=== PATIENT | female | born 1990 | race Caucasian/White ===

== ENCOUNTER 2023-01-14 03:11 | Emergency (ER) | payer MEDICAID, OTHER ==
[~2023-01-14] VITALS: Ht 167.6 cm; Wt 65.0 kg
[~2023-01-14 03:11] MED LIST: ALBU6.7H15 INH; CLAR10 PO; MONT-46 PO; P20 MT
[2023-01-14] MEDS ORDERED: IPRATROPIUM BROMIDE (0.02%) 0.5MG/2.5ML NEB HHN STA (03:31)
[2023-01-14] MEDS ORDERED: METHYLPREDNISOLONE SOD SUCC 125 MG/2 ML VIAL IV STA (03:31)
[2023-01-14] MEDS ORDERED: ALBUTEROL (0.083%) 2.5MG/3ML NEB HHN STA (03:31)
[2023-01-14] MEDS ORDERED: MAGNESIUM 2 G PREMIX 50 ML IV STA (03:31)
[2023-01-14] MEDS ORDERED: ALBU6.7H3 INH (05:08)
[2023-01-14] MEDS ORDERED: P20 MT (05:08)
[2023-01-14 07:13] VITALS: BP 121/72
== END 2023-01-14 06:15 | disposition home or self-care (01) ==
LOC: ER 03:11
DX: J45.901 Unspecified asthma with (acute) exacerbation (principal); F12.10 Cannabis abuse, uncomplicated
CPT/HCPCS: 94644; 96365; 96366; 96375; 99285; J2930; J3475; Z7610

== ENCOUNTER 2023-01-18 16:51 | Emergency (ER) | payer OTHER ==
[~2023-01-18] VITALS: Ht 157.5 cm; Wt 75.0 kg
[~2023-01-18 16:51] MED LIST changes: +ALBU6.7H3 INH
[2023-01-18 16:54] VITALS: BP 123/84
[2023-01-18] MEDS ORDERED: PREDNISONE 20MG TABLET PO STA (16:58)
[2023-01-18] MEDS ORDERED: ALBUTEROL (0.083%) 2.5MG/3ML NEB HHN STA (18:46)
[2023-01-18] MEDS ORDERED: P50 MT (18:50)
[2023-01-18] MEDS ORDERED: ALBU6.7H3 INH (18:51)
== END 2023-01-18 19:07 | disposition home or self-care (01) ==
LOC: ER 16:51
DX: J45.901 Unspecified asthma with (acute) exacerbation (principal); F12.10 Cannabis abuse, uncomplicated
CPT/HCPCS: 71045; 93005; 94640; 99283; J7512; Z7610

== ENCOUNTER 2023-03-29 20:58 | Emergency (ER) | payer OTHER ==
[~2023-03-29] VITALS: Ht 149.9 cm; Wt 62.1 kg
[~2023-03-29 20:58] MED LIST changes: +P50 MT
[2023-03-29] MEDS ORDERED: METHYLPREDNISOLONE SOD SUCC 125 MG/2 ML VIAL IV STA (21:21)
[2023-03-29] MEDS ORDERED: SODIUM CHLORIDE 0.9% 1,000 ML IV ONE (21:30)
[2023-03-29 22:53] LABS: BASOPHILS % 0.2 % (0.0-2.0); EOSINOPHILS % 5.5 % (0.0-5.0); HEMATOCRIT. 42.7 % (36.0-48.0); HEMOGLOBIN. 14.4 g/dL (12.0-16.0); LYMPHOCYTES % 12.6 % (20.0-50.0); MEAN CORPUSCULAR HEMOGLOBIN 32.9 pg (28.0-32.0); MEAN CORPUSCULAR VOLUME 97.2 fL (81.0-99.0); MEAN PLATELET VOLUME 8.2 fl (7.4-10.4); MONOCYTES % 4.6 % (2.0-8.0); NEUTROPHILS % 77.1 % (40.0-76.0); PLATELET 295 x1000/uL (130-400); RED CELL DISTRIBUTION WIDTH 13.4 % (11.6-14.6)
[2023-03-29 23:01] LABS: CHLORIDE 109 mEq/L (98-107)
[2023-03-29] MEDS ORDERED: ALBU6.7H3 INH (23:29)
[2023-03-29] MEDS ORDERED: ALBU05 NEB (23:29)
[2023-03-29] MEDS ORDERED: P50 MT (23:29)
[2023-03-30 00:45] LABS: BG BASE EXCESS -4.6 mmol/L (-2.0-2.0); BG CARBOXYHEMOGLOBIN 0.5 % (0.5-1.5); BG DEOXYHEMOGLOBIN 10.4 % (0.0-5.0); BG FRACTION INSPIRED OXYGEN 21; BG HCO3 ACT 20.4 mmol/L (22.0-26.0); BG METHEMOGLOBIN 0.2 % (0.0-1.5); BG OXYGEN SATURATION 89.5 % (92.0-98.5); BG OXYHEMOGLOBIN 88.9 % (94.0-97.0); BG PCO2 37.8 mmHg (35.0-45.0); BG PO2 59.9 mmHg (75.0-100.0); BG SAMPLE SITE LEFT BRACHIAL; BG TOTAL HEMOGLOBIN 15.1 g/dL (12.0-18.0); BG VENT MODE ROOM AIR
[2023-03-30 04:15] VITALS: BP 113/73
== END 2023-03-30 04:50 | disposition left against medical advice (07) ==
LOC: ER 20:58
DX: J45.901 Unspecified asthma with (acute) exacerbation (principal); F12.10 Cannabis abuse, uncomplicated; Z79.899 Other long term (current) drug therapy
CPT/HCPCS: 36415; 36600; 71045; 80053; 82375; 82805; 85025; 93005; 96360; 96361; 99285; J2930; J7030

== ENCOUNTER 2023-04-24 23:24 | Emergency (ER) | payer OTHER ==
[~2023-04-24] VITALS: Ht 162.6 cm; Wt 73.0 kg
[~2023-04-24 23:24] MED LIST changes: +ALBU05 NEB
[2023-04-24] MEDS ORDERED: METHYLPREDNISOLONE SOD SUCC 125MG/2ML (ACT-O-VIAL) IV STA (23:52)
[2023-04-24] MEDS ORDERED: IPRATROPIUM BROMIDE (0.02%) 0.5MG/2.5ML NEB HHN STA (23:52)
[2023-04-25] MEDS ORDERED: SODIUM CHLORIDE 0.9% 1,000 ML IV ONE
[2023-04-25] MEDS ORDERED: MAGNESIUM 2 G PREMIX 50 ML IV ONE
[2023-04-25 00:36] LABS: BASOPHILS % 0.5 % (0.0-2.0); EOSINOPHILS % 6.6 % (0.0-5.0); HEMATOCRIT. 41.2 % (36.0-48.0); HEMOGLOBIN. 13.8 g/dL (12.0-16.0); MEAN CORPUSCULAR HEMOGLOBIN 32.6 pg (28.0-32.0); MEAN CORPUSCULAR VOLUME 97.1 fL (81.0-99.0); MEAN PLATELET VOLUME 7.6 fl (7.4-10.4); MONOCYTES % 7.7 % (2.0-8.0); NEUTROPHILS % 67.2 % (40.0-76.0); PLATELET 306 x1000/uL (130-400); RED BLOOD CELL COUNT 4.24 mill/uL (4.2-5.4); RED CELL DISTRIBUTION WIDTH 13.8 % (11.6-14.6)
[2023-04-25 00:40] LABS: CHLORIDE 112 mEq/L (98-107)
[2023-04-25 01:08] LABS: HCG SCREEN NEGATIVE
[2023-04-25 01:28] VITALS: PULSE 132; RESP 25; O2SAT 96
[2023-04-25] MEDS: ALBUTEROL (0.083%) 2.5MG/3ML NEB HHN SCH ×3 (01:36→01:38)
[2023-04-25] MEDS ORDERED: IPRATROPIUM BROMIDE (0.02%) 0.5MG/2.5ML NEB HHN NR (01:45)
[2023-04-25] MEDS ORDERED: ACETAMINOPHEN 325MG TABLET PO NR (01:45)
[2023-04-25 01:50] VITALS: PULSE 112; RESP 20; O2SAT 99
[2023-04-25 02:15] VITALS: PULSE 108; RESP 20; O2SAT 99
[2023-04-25] MEDS ORDERED: ALBUTEROL (0.083%) 2.5MG/3ML NEB HHN STA (04:13)
[2023-04-25] MEDS ORDERED: IPRATROPIUM BROMIDE (0.02%) 0.5MG/2.5ML NEB HHN STA (04:13)
[2023-04-25 04:51] VITALS: PULSE 107; RESP 20; O2SAT 99
[2023-04-25 05:48] VITALS: BP 113/60; PULSE 98; RESP 14
[2023-04-25] MEDS ORDERED: ALBU6.7H3 INH (05:58)
[2023-04-25] MEDS ORDERED: P20 MT (05:58)
== END 2023-04-25 06:19 | disposition home or self-care (01) ==
LOC: ER 23:24
DX: J45.909 Unspecified asthma, uncomplicated (principal); F12.10 Cannabis abuse, uncomplicated; Z79.899 Other long term (current) drug therapy; Z20.822 Contact with and (suspected) exposure to COVID-19
CPT/HCPCS: 36415; 71045; 94640; 99291; 80053; 84703; 85025; 96365; 96366; 96375; 87426; Z7610 ×3; J3475; J2930; J7030; C9803

== ENCOUNTER 2023-07-09 11:49 | Emergency (ER) | payer OTHER ==
[~2023-07-09] VITALS: Ht 157.5 cm; Wt 64.0 kg
[2023-07-09 11:53] VITALS: O2SAT 98
[2023-07-09] MEDS ORDERED: PREDNISONE 20MG TABLET PO ONE (12:15)
[2023-07-09] MEDS ORDERED: ALBU90AE INH (14:09)
[2023-07-09 14:11] VITALS: BP 128/72; PULSE 100; RESP 18; TEMP 98.7
== END 2023-07-09 14:13 | disposition home or self-care (01) ==
LOC: ER 12:06
DX: J45.901 Unspecified asthma with (acute) exacerbation (principal); Z91.013 Allergy to seafood; Z79.899 Other long term (current) drug therapy
CPT/HCPCS: 99283; J7512

== ENCOUNTER 2023-10-14 19:50 | Emergency (ER) | payer OTHER ==
[~2023-10-14] VITALS: Ht 167.6 cm; Wt 59.0 kg
[~2023-10-14 19:50] MED LIST changes: +ALBU90AE INH
[2023-10-14 20:07] VITALS: BP 143/96; TEMP 97.3
[2023-10-14] MEDS ORDERED: ALBUTEROL (0.083%) 2.5MG/3ML NEB HHN STA (20:14)
[2023-10-14] MEDS ORDERED: METHYLPREDNISOLONE SOD SUCC 125MG/2ML (ACT-O-VIAL) IV STA (20:14)
[2023-10-14] MEDS ORDERED: MAGNESIUM 2 G PREMIX 50 ML IV STA (20:14)
[2023-10-14] MEDS ORDERED: IPRATROPIUM BROMIDE (0.02%) 0.5MG/2.5ML NEB HHN STA (20:14)
[2023-10-14] MEDS ORDERED: ONDANSETRON HCL 4MG/2ML INJ IV ONE (20:15)
[2023-10-14 20:53] VITALS: PULSE 103; RESP 24; O2SAT 96
[2023-10-14] MEDS ORDERED: ACETAMINOPHEN 325MG TABLET PO ONE (21:30)
[2023-10-14] MEDS ORDERED: SODIUM CHLORIDE 0.9% 1,000 ML IV ONE (22:45)
[2023-10-14 22:50] LABS: HEMOGLOBIN. 14.6 g/dL (12.0-16.0); MEAN CORPUSCULAR HEMOGLOBIN 32.2 pg (28.0-32.0); MEAN CORPUSCULAR HGB CONC 32.3 g/dL (31.0-37.0); MEAN CORPUSCULAR VOLUME 99.7 fL (81.0-99.0); PLATELET 294 x1000/uL (130-400); RED BLOOD CELL COUNT 4.52 mill/uL (4.2-5.4); RED CELL DISTRIBUTION WIDTH 12.9 % (11.6-14.6)
[2023-10-14 22:56] LABS: DIFFERENTIAL COMMENT 1
[2023-10-14 23:03] LABS: ALANINE AMINOTRANSFERASE 20 IU/L (10-49); ALBUMIN 4.8 g/dL (3.2-4.8); ASPARTATE AMINOTRANSFERASE 24 IU/L (<34); BILIRUBIN TOTAL 0.7 mg/dL (0.1-1.0); CALCIUM 9.4 mg/dL (8.7-10.4); CARBON DIOXIDE 28 mEq/L (21-32); CHLORIDE 109 mEq/L (98-107); CREATININE 0.6 mg/dL (0.6-1.0); GLUCOSE 128 mg/dL (70-105); POTASSIUM 3.5 mEq/L (3.5-5.1); PROTEIN TOTAL 8.1 g/dL (6.0-8.3); SODIUM 145 mEq/L (136-145); UREA NITROGEN BLOOD 7 mg/dL (9-23)
[2023-10-14 23:11] LABS: HCG SCREEN NEGATIVE
[2023-10-14 23:30] LABS: ANISOCYTOSIS 1+; PLATELET ESTIMATE NORMAL
[2023-10-15] MEDS ORDERED: P50 MT (05:53)
[2023-10-22] MEDS ORDERED: MED4 MT (12:38)
[2023-10-22] MEDS ORDERED: ALBU6.7H15 INH (12:38)
[2023-10-22] MEDS ORDERED: ALBU2.5V13 NEB (12:38)
== END 2023-10-15 07:31 | disposition home or self-care (01) ==
LOC: ER 19:50
DX: J45.901 Unspecified asthma with (acute) exacerbation (principal); Z91.013 Allergy to seafood; Z79.899 Other long term (current) drug therapy
CPT/HCPCS: 80053; 84703; 85025; 36415; 71045; 94644; 96361; 96374; 96375; 99285; J3475; J2930; J2405; Z7610 ×4; J7030

== ENCOUNTER 2024-12-19 20:20 | Emergency (ER) | payer MEDICAID, OTHER ==
[~2024-12-19] VITALS: Ht 167.6 cm; Wt 65.0 kg
[~2024-12-19 20:20] MED LIST changes: -ALBU05 NEB; +ALBU2.5V13 NEB; -ALBU6.7H3 INH; -ALBU90AE INH; +METH4TAB95 MT; -P20 MT; -P50 MT
[2024-12-19 20:30] VITALS: RESP 22; O2SAT 93
[2024-12-19 20:43] LABS: BASOPHILS % 0.3 % (0.0-2.0); DIFFERENTIAL COMMENT 0; EOSINOPHILS % 0.6 % (0.0-5.0); HEMATOCRIT. 47.1 % (36.0-48.0); HEMOGLOBIN. 15.5 g/dL (12.0-16.0); LYMPHOCYTES % 14.1 % (20.0-50.0); MEAN CORPUSCULAR HEMOGLOBIN 33.9 pg (28.0-32.0); MEAN CORPUSCULAR HGB CONC 32.9 g/dL (31.0-37.0); MEAN PLATELET VOLUME 7.9 fl (7.4-10.4); MONOCYTES % 5.5 % (2.0-8.0); NEUTROPHILS % 79.5 % (40.0-76.0); PLATELET 384 x1000/uL (130-400); RED BLOOD CELL COUNT 4.57 mill/uL (4.2-5.4); RED CELL DISTRIBUTION WIDTH 13.6 % (11.6-14.6); WHITE BLOOD COUNT 15.1 x1000/uL (4.5-11.0)
[2024-12-19] MEDS: METHYLPREDNISOLONE SOD SUCC 125MG/2ML (ACT-O-VIAL) IV STA (20:44)
[2024-12-19] MEDS: MAGNESIUM 2 G PREMIX 50 ML IV ONE (20:44)
[2024-12-19 20:49] LABS: CHLORIDE 103 mEq/L (98-107); POTASSIUM 3.2 mEq/L (3.5-5.1); SODIUM 138 mEq/L (136-145)
[2024-12-19 20:50] LABS: CALCIUM 9.8 mg/dL (8.7-10.4); CARBON DIOXIDE 24 mEq/L (21-32)
[2024-12-19 20:55] LABS: CREATININE 0.7 mg/dL (0.6-1.0); GLUCOSE 161 mg/dL (70-105); UREA NITROGEN BLOOD 10 mg/dL (9-23)
[2024-12-19 20:59] LABS: HCG SCREEN NEGATIVE
[2024-12-19 21:08] LABS: INR 0.9; PARTIAL THROMBOPLASTIN TIME 27.9 sec (23.4-31.0); PROTHROMBIN TIME 10.4 sec (9.6-11.0); TROPONIN I HIGH SENSITIVITY < 4 ng/L (3.0-34)
[2024-12-19 21:29] VITALS: RESP 19
[2024-12-19] MEDS: IPRATROPIUM BROMIDE (0.02%) 0.5MG/2.5ML NEB HHN STA (21:29)
[2024-12-19] MEDS: ALBUTEROL (0.083%) 2.5MG/3ML NEB HHN SCH (21:29)
[2024-12-19 22:05] VITALS: RESP 20
[2024-12-19 22:35] VITALS: RESP 17
[2024-12-19 23:10] LABS: BG BASE EXCESS -2.6 mmol/L (-2.0-3.0); BG CARBOXYHEMOGLOBIN 0.3 % (0.5-1.5); BG DEOXYHEMOGLOBIN 0.7 % (0.0-5.0); BG FRACTION INSPIRED OXYGEN 60; BG HCO3 ACT 23.3 mmol/L (21.0-28.0); BG OXYGEN SATURATION 99.3 % (94.0-98.0); BG PCO2 44.1 mmHg (32.0-45.0); BG PO2 183.7 mmHg (83.0-108.0); BG SAMPLE SITE LEFT BRACHIAL; BG TOTAL HEMOGLOBIN 15.4 g/dL (12.0-16.0); BG VENT MODE MASK - BIPAP
[2024-12-19 23:32] VITALS: TEMP 36.5
[2024-12-20] MEDS ORDERED: ONDANSETRON HCL 4MG/2ML INJ IV PRN (00:30)
[2024-12-20] MEDS ORDERED: CLONIDINE 0.1MG TABLET PO PRN (00:30)
[2024-12-20] MEDS ORDERED: IPRATROPIUM/ALBUTEROL 0.5-3(2.5)MG/3ML NEB NEB SCH (00:30)
[2024-12-20] MEDS ORDERED: ZOLPIDEM TARTRATE 5MG TABLET PO PRN (00:30)
[2024-12-20] MEDS ORDERED: HYDROCODONE/ACETAMINOPHEN 5/325MG TABLET PO PRN (00:30)
[2024-12-20] MEDS: SODIUM CHLORIDE 0.9% 1,000 ML IV SCH (00:51)
[2024-12-20] MEDS: CEFTRIAXONE 1GM/50ML 50 ML IV SCH (00:51)
[2024-12-20 01:06] VITALS: BP 113/71; PULSE 126; RESP 21; O2SAT 87
[2024-12-20] MEDS ORDERED: AZITHROMYCIN 500MG/250ML 250 ML IV SCH (02:00)
[2024-12-20] MEDS ORDERED: METHYLPREDNISOLONE SOD SUCC 40MG/ML (ACT-O-VIAL) IV SCH (06:00)
[2024-12-20] MEDS ORDERED: ENOXAPARIN 40MG/0.4ML SYR SUBCUT SCH (09:00)
[2024-12-20] MEDS ORDERED: PANTOPRAZOLE SODIUM 40 MG/VIAL IV SCH (09:00)
[2024-12-21] MEDS ORDERED: CEFTRIAXONE 1GM/50ML 50 ML IV SCH (08:00)
[2024-12-21] MEDS ORDERED: AZITHROMYCIN 500MG/250ML 250 ML IV SCH (09:00)
== END 2024-12-20 01:27 | disposition left against medical advice (07) ==
LOC: ER 20:20 → EDBEDREQ 21:38 → EDBEDREQTM 21:38 → EDBEDREQ 21:39 → ER 12-20 01:27
DX: J96.01 Acute respiratory failure with hypoxia (principal); J45.901 Unspecified asthma with (acute) exacerbation; Z87.891 Personal history of nicotine dependence
CPT/HCPCS: 80048; 84703; 83880; 85025; 85610; 85730; 84484; 36415; 71045; 94640; 82805; 82375; 94660; 93005; 96365; 96366; 96375; 99291; 36600; 96367; J3475; J2919; Z7610 ×2; J0696; J0456